=== PATIENT | female | born 1985 ===

== ENCOUNTER 2021-06-04 23:19 | Emergency (ER) | payer SELFPAY ==
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
[2021-06-05 01:00] VITALS: BP 150/96
== END 2021-06-05 01:00 | disposition home or self-care (01) ==
LOC: ED 23:19
DX: S16.1XXA Strain of muscle, fascia and tendon at neck level, initial encounter (principal); M62.838 Other muscle spasm; V47.5XXA Car driver injured in collision with fixed or stationary object in traffic accident, initial encounter; Y93.89 Activity, other specified; Y92.89 Other specified places as the place of occurrence of the external cause; Y99.8 Other external cause status
CPT/HCPCS: 99281